=== PATIENT | female | born 1955 | race Caucasian/White ===

== ENCOUNTER 2018-07-01 13:14 | Emergency (ER) | payer MEDICAID ==
--- NOTE | 2018-07-01 14:21 | EDPHYS ---
Physician Documentation [facility] Name: Alethea Cabrera Age: 63 yrs Sex: Female : 1955 Arrival Date: 07/01/2018 Time: 13:15 Bed 17 Private MD: Miguel Nicole ED Physician Uri Dalton HPI: 07/01 14:04 This 63 yrs old Female presents to ER via EMS with complaints of Toothache. gs 14:04 The patient presents with broken tooth/teeth, pain. Onset: The symptoms/episode gs began/occurred 1 week(s) ago. Duration: The symptoms are continuous. Modifying factors: the symptoms are aggravated by chewing, cold fluids, food. Associated signs and symptoms: Pertinent negatives: chills, fever. Severity of symptoms: At their worst the symptoms were moderate, in the emergency department the symptoms are unchanged. The patient has experienced similar episodes in the past, chronically. The patient has not recently seen a physician. Historical: - Allergies: 13:34 No Known Allergies; ss - PMHx: 13:34 Arthritis; Asthma; COPD; Depression; ss 14:15 Hypertension; gs - PSHx: 13:34 ; Appendectomy; Carpal Tunnel Repair; Cholecystectomy; ss - Immunization history:: Adult Immunizations up to date. - Social history:: Smoking status: Patient/guardian denies using tobacco. - Ebola Screening: : Patient denies exposure to infectious person Patient denies travel to an Ebola-affected area in the 21 days before illness onset. ROS: 14:04 All other systems are negative. gs Exam: 14:04 Neck: Trachea midline, no thyromegaly or masses palpated, and no cervical gs lymphadenopathy. Supple, full range of motion without nuchal rigidity, or vertebral point tenderness. No Meningismus. Chest/axilla: Normal chest wall appearance and motion. Nontender with no deformity. No lesions are appreciated. Cardiovascular: Regular rate and rhythm with a normal S1 and S2. No gallops, murmurs, or rubs. Normal PMI, no JVD. No pulse deficits. Respiratory: Lungs have equal breath sounds bilaterally, clear to auscultation and percussion. No rales, rhonchi or wheezes noted. No increased work of breathing, no retractions or nasal flaring. Abdomen/GI: Soft, non-tender, with normal bowel sounds. No distension or tympany. No guarding or rebound. No evidence of tenderness throughout. Back: No spinal tenderness. No costovertebral tenderness. Full range of motion. Skin: Warm, dry with normal turgor. Normal color with no rashes, no lesions, and no evidence of cellulitis. MS/ Extremity: Pulses equal, no cyanosis. Neurovascular intact. Full, normal range of motion. Neuro: Awake and alert, GCS 15, oriented to person, place, time, and situation. Cranial nerves II-XII grossly intact. Motor strength 5/5 in all extremities. Sensory grossly intact. Cerebellar exam normal. Normal gait. 14:04 Constitutional: The patient appears alert, awake. 14:04 Head/face: Exam is negative for swelling. 14:04 Eyes: Exam is negative for acute changes. 14:04 ENT: Dental exam: dental caries, diffusely, fractured teeth are noted, specifically the lower right second molar (#31), gum swelling, not appreciated. Vital Signs: 13:34 BP 144 / 64; Pulse 104; Resp 20; Temp 97.9(O); Pulse Ox 97% on R/A; Weight 106.14 kg; ss Height 4 ft. 9 in. (144.78 cm); Pain 10/10; 13:34 Body Mass Index 50.64 (106.14 kg, 144.78 cm) ss MDM: 14:04 Patient medically screened. gs 14:15 Differential diagnosis: dental caries, gingivitis, dental abscess. Data reviewed: vital gs signs, nurses notes. Response to treatment: the patient's symptoms have mildly improved after treatment, and as a result, I will discharge patient. Administered Medications: No medications were administered Disposition: 07/01/18 14:21 Discharged to Home. Impression: Dental caries, Dental root caries. - Condition is Stable. - Discharge Instructions: Dental Caries, Adult, Dental Pain. - Prescriptions for Amoxicillin 875 mg Oral Tablet - take 1 tablet by ORAL route every 12 hours for 7 days; 14 tablet. Tylenol- Codeine #4 300-60 mg Oral Tablet - take 1 tablet by ORAL route every 6 hours As needed; 12 tablet. - Medication Reconciliation Form, Thank You Letter, Antibiotic Education, Prescription Opioid Use form. - Follow up: Private Physician; When: 2 - 3 days; Reason: Re-evaluation by your physician. Signatures: Erika Tavarez RN RN ss Uri Dalton MD MD gs Acob, MOISES Coronel RN ca1 Corrections: (The following items were deleted from the chart) 14:46 14:21 07/01/2018 14:21 Discharged to Home. Impression: Dental caries; Dental root ca1 caries. Condition is Stable. Forms are Medication Reconciliation Form, Thank You Letter, Antibiotic Education, Prescription Opioid Use. Follow up: Private Physician; When: 2 - 3 days; Reason: Re-evaluation by your physician. amy
--- NOTE | 2018-07-01 14:21 | ER ---
Nurse's Notes [facility] Name: Alethea Cabrera Age: 63 yrs Sex: Female : 1955 Arrival Date: 07/01/2018 Time: 13:15 Bed 17 Private MD: Miguel Nicole Diagnosis: Dental caries;Dental root caries Presentation: 07/01 13:33 Presenting complaint: Patient states: dental pain x 3 weeks. Pt also c/o sinus ss congestion and ear pain. Transition of care: patient was not received from another setting of care. Onset of symptoms was June 10, 2018. Risk Assessment: Do you want to hurt yourself or someone else? Patient reports no desire to harm self or others. Initial Sepsis Screen: Does the patient meet any 2 criteria? HR > 90 bpm. Does the patient have a suspected source of infection? No. Patient's initial sepsis screen is negative. Care prior to arrival: None. 13:33 Method Of Arrival: EMS: [facility] ss 13:33 Acuity: HEIKE 5 ss Historical: - Allergies: 13:34 No Known Allergies; ss - PMHx: 13:34 Arthritis; Asthma; COPD; Depression; ss 14:15 Hypertension; gs - PSHx: 13:34 ; Appendectomy; Carpal Tunnel Repair; Cholecystectomy; ss - Immunization history:: Adult Immunizations up to date. - Social history:: Smoking status: Patient/guardian denies using tobacco. - Ebola Screening: : Patient denies exposure to infectious person Patient denies travel to an Ebola-affected area in the 21 days before illness onset. Screenin:15 Abuse screen: Denies threats or abuse. Denies injuries from another. Nutritional ca1 screening: No deficits noted. Tuberculosis screening: No symptoms or risk factors identified. Fall Risk None identified. Assessment: 14:00 General: Appears in no apparent distress. Behavior is calm, cooperative. Pain: Pain ca1 currently is 5 out of 10 on a pain scale. Neuro: Level of Consciousness is awake, alert, obeys commands, Oriented to person, place, time, situation. Cardiovascular: Capillary refill < 3 seconds Patient's skin is warm and dry. Respiratory: Airway is patent Respiratory effort is even, unlabored, Respiratory pattern is regular, symmetrical. GI: No signs and/or symptoms were reported involving the gastrointestinal system. : No signs and/or symptoms were reported regarding the genitourinary system. EENT: Reports pain in lower right second molar (#31). Derm: Skin is intact, is healthy with good turgor. Musculoskeletal: No signs and/or symptoms reported regarding the musculoskeletal system. Vital Signs: 13:34 BP 144 / 64; Pulse 104; Resp 20; Temp 97.9(O); Pulse Ox 97% on R/A; Weight 106.14 kg; ss Height 4 ft. 9 in. (144.78 cm); Pain 10/10; 13:34 Body Mass Index 50.64 (106.14 kg, 144.78 cm) ED Course: 13:15 Patient arrived in ED. mr 13:15 Miguel Nicole MD is Private Physician. mr 13:34 Triage completed. 13:34 Arm band placed on right wrist. 13:54 Uri Dalton MD is Attending Physician. 14:00 Patient has correct armband on for positive identification. Bed in low position. Call ca1 light in reach. Side rails up X 1. 14:45 No provider procedures requiring assistance completed. Patient did not have IV access ca1 during this emergency room visit. Administered Medications: No medications were administered Outcome: 14:21 Discharge ordered by . 14:45 Discharged to home ambulatory. ca1 14:45 Condition: stable 14:45 Discharge instructions given to patient, Instructed on discharge instructions, follow up and referral plans. medication usage, Demonstrated understanding of instructions, follow-up care, medications, Prescriptions given X 2. 14:46 Patient left the ED. ca1 Signatures: [place] mr Erika Tavarez RN RN Uri Dalton MD MD Berna Villarreal RN RN ca1
== END 2018-07-01 14:46 | disposition home or self-care (01) ==
LOC: ER 13:14
DX: K02.7 Dental root caries (principal); I10 Essential (primary) hypertension
CPT/HCPCS: 99283

== ENCOUNTER 2019-04-16 06:10 | Emergency (ER) | payer MEDICAID ==
[2019-04-16] MEDS ORDERED: ONDANSETRON 4 MG/2 ML VIAL ONE (06:57)
[2019-04-16] MEDS ORDERED: NA CHLORIDE 0.9% 1,000 ML ONE (06:57)
[2019-04-16] MEDS ORDERED: MORPHINE 2 MG/ML SYR ONE (06:57)
[2019-04-16 07:08] LABS: Absolute Lymphocytes (CBC) 3.4 K/uL (0.7-4.9); Basophils % 0.5 % (0-1.3); Hematocrit 44.5 % (36.0-45.0); Lymphocytes % 24.3 % (15.3-44.8); MPV 8.7 fL (7.6-11.3); RBC Red Blood Cell Count 5.52 M/uL (3.86-4.86)
[2019-04-16 07:14] LABS: Protime INR 1.19
[2019-04-16 07:21] LABS: ALT/SGPT 33 U/L (12-78); AST/SGOT 34 U/L (15-37); Albumin 3.5 g/dL (3.4-5.0); Alkaline Phosphatase 156 U/L (45-117); BUN Blood Urea Nitrogen 19 mg/dL (7-18); Bicarbonate 25 mmol/L (21-32); Bilirubin Direct < 0.1 mg/dL (0-0.2); Bilirubin Total 0.3 mg/dL (0.2-1.0); Glucose Level 149 mg/dL (74-106); Lipase 54 U/L (73-393); NT PRO-BNP 49 pg/mL (<125); Potassium 3.8 mmol/L (3.5-5.1); Protein, Total 8.4 g/dL (6.4-8.2); Sodium Level 140 mmol/L (136-145); Troponin (Emerg Dept Use Only) < 0.02 ng/mL (0.0-0.045)
[2019-04-16] MEDS ORDERED: METRONIDAZOLE 500mg IVPB 500 MG/100 ML BAG IV ONE (08:27)
[2019-04-16] MEDS ORDERED: NA CHLORIDE 0.9% 500 ML ONE (08:27)
[2019-04-16] MEDS ORDERED: Levofloxacin500mg IV 500 MG/100 ML BAG IV ONE (08:27)
--- NOTE | 2019-04-16 09:42 | ER ---
Nurse's Notes [facility] Name: Alethea Cabrera Age: 63 yrs Sex: Female : 1955 Arrival Date: 04/16/2019 Time: 06:11 Bed 20 Private MD: Diagnosis: Abdominal and pelvic pain;Duodenitis;Acute sinusitis Presentation: 04/16 06:26 Presenting complaint: Patient states: cough, congestion, fever, sinus drainage, ak1 diarrhea, abd tenderness. pt sister yesterday. Transition of care: patient was not received from another setting of care. Onset of symptoms is unknown. Risk Assessment: Do you want to hurt yourself or someone else? Patient reports no desire to harm self or others. Initial Sepsis Screen: Does the patient meet any 2 criteria? RR > 20 per min. HR > 90 bpm. Yes Does the patient have a suspected source of infection? No. Patient's initial sepsis screen is negative. Care prior to arrival: None. 06:26 Method Of Arrival: Wheelchair ak1 06:26 Acuity: HEIKE 3 ak1 Triage Assessment: 06:28 General: Appears in no apparent distress. Behavior is cooperative. ak1 Historical: - Allergies: 06:28 No Known Allergies; ak1 - Home Meds: 06:35 promethazine 25 mg Oral tab 1 tab PRN [Active]; nitroglycerin 0.4 mg SL subl 1 tab PRN ak1 [Active]; levothyroxine 50 mcg tab 1 tab once daily [Active]; Lyrica 75mg Oral 1 cap 2 times per day [Active]; cyclobenzaprine 5 mg Oral tab 1 tab 3 times per day [Active]; lisinopril 10 mg Oral tab 1 tab once daily [Active]; tramadol 50 mg Oral tab 1 tab every 6 hours [Active]; montelukast 10 mg oral tab 1 tab once daily [Active]; simvastatin 20 mg Oral tab 1 tab once daily [Active]; meloxicam 15 mg oral tab 1 tab once daily [Active]; - PMHx: 06:28 Arthritis; Asthma; COPD; Hypertension; Depression; ak1 - PSHx: 06:28 ; Appendectomy; Carpal Tunnel Repair; Cholecystectomy; ak1 - Immunization history:: Adult Immunizations unknown. - Social history:: Smoking status: Patient/guardian denies using tobacco. - Ebola Screening: : No symptoms or risks identified at this time. - Family history:: not pertinent. Screenin:29 Abuse screen: Denies threats or abuse. Denies injuries from another. Nutritional ak1 screening: No deficits noted. Tuberculosis screening: No symptoms or risk factors identified. Fall Risk None identified. Assessment: 07:12 General: Appears in no apparent distress. Behavior is appropriate for age. Pain: lp1 Complains of pain in head, right ear, left ear Pain currently is 10 out of 10 on a pain scale. Neuro: Level of Consciousness is awake, alert, obeys commands, Oriented to person, place, time, situation. Cardiovascular: Patient's skin is warm and dry. Respiratory: Respiratory effort is even, unlabored, Parent/caregiver reports the patient having shortness of breath cough that is productive. GI: Abdomen is obese. : No signs and/or symptoms were reported regarding the genitourinary system. EENT: Reports nasal congestion. Derm: Skin is pink, warm \T\ dry. Musculoskeletal: No deficits noted. Vital Signs: 06:26 BP 137 / 106; Pulse 115; Resp 22; Temp 97.6(TE); Pulse Ox 97% on R/A; Weight 144.24 kg ak1 (R); Height 4 ft. 9 in. (144.78 cm) (R); Pain 10/10; 07:11 BP 159 / 84; Pulse 100; Resp 18; Pulse Ox 96% on R/A; lp1 06:26 Body Mass Index 68.81 (144.24 kg, 144.78 cm) ak ED Course: 06:11 Patient arrived in ED. ds1 06:19 Waylon Jimenez MD is Attending Physician. maurice 06:26 Arm band placed on Patient placed in an exam room, on a stretcher, on pulse oximetry, ak1 Patient notified of wait time. 06:28 Triage completed. ak1 06:29 Patient has correct armband on for positive identification. Bed in low position. Call ak1 light in reach. Side rails up X 1. Adult w/ patient. Pulse ox on. NIBP on. 06:54 Inserted saline lock: 22 gauge in left antecubital area, using aseptic technique. Blood oe collected. 07:03 Radiology exam delayed due to lab results not completed at this time. (BUN/Creatinine). eh 07:13 XRAY Chest (1 view) In Process Unspecified. EDMS 07:41 Kusum Santo, RN is Primary Nurse. ph 07:42 CT Abd/Pelvis - IV Contrast Only In Process Unspecified. EDMS 08:06 Umer Inman PA is PHCP. jr8 10:22 No provider procedures requiring assistance completed. IV discontinued, intact, ph bleeding controlled, No redness/swelling at site. Pressure dressing applied. Administered Medications: 07:00 Drug: NS 0.9% 500 ml Route: IV; Rate: bolus; Site: left antecubital; lp1 08:00 Follow up: Response: No adverse reaction; IV Status: Completed infusion ph 07:00 Drug: morphine 2 mg {Note: RASS 0.} Route: IVP; Site: left antecubital; lp1 07:30 Follow up: Response: No adverse reaction; Pain is decreased; RASS: Alert and Calm (0) ph 07:00 Drug: Zofran 4 mg Route: IVP; Site: left antecubital; lp1 10:21 Follow up: Response: No adverse reaction; Nausea is decreased ph 08:00 Drug: NS 0.9% 1000 ml Route: IV; Rate: 125 ml/hr; Site: left antecubital; ph 10:21 Follow up: Response: No adverse reaction; IV Status: Completed infusion ph 08:45 Drug: NS 0.9% 500 ml Route: IV; Rate: bolus; Site: left antecubital; ph 09:45 Follow up: Response: No adverse reaction; IV Status: Completed infusion ph 08:45 Drug: levofloxacin 500 mg Volume: 100 ml; Route: IVPB; Infused Over: 60 mins; Site: ph left antecubital; 09:45 Follow up: Response: No adverse reaction; IV Status: Completed infusion ph 09:45 Drug: Flagyl 500 mg Volume: 100 ml; Route: IVPB; Rate: 200 ml/hr; Infused Over: 30 ph mins; Site: left antecubital; 10:20 Follow up: Response: No adverse reaction; IV Status: Completed infusion ph Outcome: 09:41 Discharge ordered by MD. reyes 10:22 Discharged to home ambulatory, with family. ph 10:22 Condition: improved 10:22 Discharge instructions given to patient, Instructed on discharge instructions, follow up and referral plans. medication usage, Demonstrated understanding of instructions, follow-up care, medications, Prescriptions given X 3. 10:24 Patient left the ED. ph Signatures: Dispatcher [employer] EDWaylon Cotto MD MD cha Hagler, Alexus Briggs ds1 Tiffany Browning RN RN lp1 Umer Inman PA PA [id number] Adriane Moreno RN RN ak1 Kusum Santo RN RN Marquis Gomez
--- NOTE | 2019-04-16 09:43 | EDPHYS ---
Physician Documentation [facility] Name: Alethea Cabrera Age: 63 yrs Sex: Female : 1955 Arrival Date: 04/16/2019 Time: 06:11 Bed 20 Private MD: RAMIREZ Physician Waylon Jimenez HPI: 04/16 06:28 This 63 yrs old Female presents to ER via Wheelchair with complaints of maurice Dizziness, Ear Pain, Diarrhea. 06:28 The patient presents with dizziness, generalized weakness. Onset: The symptoms/episode maurice began/occurred 2 day(s) ago. 06:29 The patient presents with abdominal pain in the upper abdomen, in the lower abdomen, maurice abdominal distention in the upper abdomen, in the lower abdomen. Onset: The symptoms/episode began/occurred 3 day(s) ago. The patient presents to the emergency department with nausea, diarrhea, abdominal pain, of the right upper quadrant, left upper quadrant, right lower quadrant and left lower quadrant. Possible causes: unknown. Historical: - Allergies: 06:28 No Known Allergies; ak1 - Home Meds: 06:35 promethazine 25 mg Oral tab 1 tab PRN [Active]; nitroglycerin 0.4 mg SL subl 1 tab PRN ak1 [Active]; levothyroxine 50 mcg tab 1 tab once daily [Active]; Lyrica 75mg Oral 1 cap 2 times per day [Active]; cyclobenzaprine 5 mg Oral tab 1 tab 3 times per day [Active]; lisinopril 10 mg Oral tab 1 tab once daily [Active]; tramadol 50 mg Oral tab 1 tab every 6 hours [Active]; montelukast 10 mg oral tab 1 tab once daily [Active]; simvastatin 20 mg Oral tab 1 tab once daily [Active]; meloxicam 15 mg oral tab 1 tab once daily [Active]; - PMHx: 06:28 Arthritis; Asthma; COPD; Hypertension; Depression; ak1 - PSHx: 06:28 ; Appendectomy; Carpal Tunnel Repair; Cholecystectomy; ak1 - Immunization history:: Adult Immunizations unknown. - Social history:: Smoking status: Patient/guardian denies using tobacco. - Ebola Screening: : No symptoms or risks identified at this time. - Family history:: not pertinent. ROS: 06:29 Constitutional: Negative for fever, chills, and weight loss, Eyes: Negative for injury, maurice pain, redness, and discharge, ENT: Negative for injury, pain, and discharge, Neck: Negative for injury, pain, and swelling, Cardiovascular: Negative for chest pain, palpitations, and edema, Respiratory: Negative for shortness of breath, cough, wheezing, and pleuritic chest pain, Back: Negative for injury and pain, : Negative for injury, bleeding, discharge, and swelling, MS/Extremity: Negative for injury and deformity, Skin: Negative for injury, rash, and discoloration, Neuro: Negative for headache, weakness, numbness, tingling, and seizure, Psych: Negative for depression, anxiety, suicide ideation, homicidal ideation, and hallucinations, Allergy/Immunology: Negative for hives, rash, and allergies, Endocrine: Negative for neck swelling, polydipsia, polyuria, polyphagia, and marked weight changes, Hematologic/Lymphatic: Negative for swollen nodes, abnormal bleeding, and unusual bruising. 06:29 Abdomen/GI: Positive for abdominal pain, diarrhea. Exam: 06:29 Constitutional: This is a well developed, well nourished patient who is awake, alert, maurice and in no acute distress. Head/Face: Normocephalic, atraumatic. Eyes: Pupils equal round and reactive to light, extra-ocular motions intact. Lids and lashes normal. Conjunctiva and sclera are non-icteric and not injected. Cornea within normal limits. Periorbital areas with no swelling, redness, or edema. ENT: Nares patent. No nasal discharge, no septal abnormalities noted. Tympanic membranes are normal and external auditory canals are clear. Oropharynx with no redness, swelling, or masses, exudates, or evidence of obstruction, uvula midline. Mucous membranes moist. Neck: Trachea midline, no thyromegaly or masses palpated, and no cervical lymphadenopathy. Supple, full range of motion without nuchal rigidity, or vertebral point tenderness. No Meningismus. Chest/axilla: Normal chest wall appearance and motion. Nontender with no deformity. No lesions are appreciated. Back: No spinal tenderness. No costovertebral tenderness. Full range of motion. Skin: Warm, dry with normal turgor. Normal color with no rashes, no lesions, and no evidence of cellulitis. MS/ Extremity: Pulses equal, no cyanosis. Neurovascular intact. Full, normal range of motion. Neuro: Awake and alert, GCS 15, oriented to person, place, time, and situation. Cranial nerves II-XII grossly intact. Motor strength 5/5 in all extremities. Sensory grossly intact. Cerebellar exam normal. Normal gait. Psych: Awake, alert, with orientation to person, place and time. Behavior, mood, and affect are within normal limits. 06:29 Cardiovascular: Rate: tachycardic, Rhythm: regular, Pulses: Pulses are 4+ in bilateral radial, brachial, femoral, popliteal, posterior tibial and and dorsalis pedis arteries.. Heart sounds: normal, Edema: is not appreciated, JVD: is not appreciated. 06:29 Respiratory: Exam negative for acute changes. Vital Signs: 06:26 BP 137 / 106; Pulse 115; Resp 22; Temp 97.6(TE); Pulse Ox 97% on R/A; Weight 144.24 kg ak1 (R); Height 4 ft. 9 in. (144.78 cm) (R); Pain 10/10; 07:11 BP 159 / 84; Pulse 100; Resp 18; Pulse Ox 96% on R/A; lp1 06:26 Body Mass Index 68.81 (144.24 kg, 144.78 cm) ak1 MDM: 06:21 Patient medically screened. [facility] 06:31 Data reviewed: vital signs, nurses notes, lab test result(s), EKG, radiologic studies, [facility] CT scan, plain films. 08:27 Data interpreted: Pulse oximetry: on room air is 96 %. Interpretation: normal. jr8 Counseling: I had a detailed discussion with the patient and/or guardian regarding: the historical points, exam findings, and any diagnostic results supporting the discharge/admit diagnosis, lab results, radiology results. 09:39 ED course: Mild duodenitis noted on CT. No other acute findings. Labs unremarkable. jr8 Patient doing better. Able to tolerate both solids and liquids. Will continue Abx at home. To f/u with PCP in next few days. If worse knows to come back . 04/16 06:27 Order name: Basic Metabolic Panel; Complete Time: 07: [facility] 04/16 06:27 Order name: CBC with Diff; Complete Time: : [facility] 04/16 06:27 Order name: LFT's; Complete Time: :26 [facility] 04/16 06:27 Order name: Magnesium; Complete Time: 07:26 [facility] 04/16 06:27 Order name: NT PRO-BNP; Complete Time: 07:26 [facility] 04/16 06:27 Order name: PT-INR; Complete Time: 07:26 [facility] 04/16 06:27 Order name: Troponin (emerg Dept Use Only); Complete Time: 07:26 [facility] 04/16 06:27 Order name: XRAY Chest (1 view) 04/16 06:27 Order name: Lipase; Complete Time: 07:26 [facility] 04/16 06:27 Order name: Blood Culture Adult (2) 04/16 06:27 Order name: CT Abd/Pelvis - IV Contrast Only 04/16 06:27 Order name: EKG; Complete Time: 06:29 [facility] 04/16 06:27 Order name: Cardiac monitoring; Complete Time: 06:55 [facility] 04/16 06:27 Order name: EKG - Nurse/Tech; Complete Time: 06:55 [facility] 04/16 06:27 Order name: IV Saline Lock; Complete Time: 06:55 [facility] 04/16 06:27 Order name: Labs collected and sent; Complete Time: 06:56 [facility] 04/16 06:27 Order name: O2 Per Protocol; Complete Time: 06:56 [facility] 04/16 06:27 Order name: O2 Sat Monitoring; Complete Time: 06:56 [facility] 04/16 07:33 Order name: PO challenge: ice; Complete Time: 07:52 [facility] Administered Medications: 07:00 Drug: NS 0.9% 500 ml Route: IV; Rate: bolus; Site: left antecubital; lp1 08:00 Follow up: Response: No adverse reaction; IV Status: Completed infusion ph 07:00 Drug: morphine 2 mg {Note: RASS 0.} Route: IVP; Site: left antecubital; lp1 07:30 Follow up: Response: No adverse reaction; Pain is decreased; RASS: Alert and Calm (0) ph 07:00 Drug: Zofran 4 mg Route: IVP; Site: left antecubital; lp1 10:21 Follow up: Response: No adverse reaction; Nausea is decreased ph 08:00 Drug: NS 0.9% 1000 ml Route: IV; Rate: 125 ml/hr; Site: left antecubital; ph 10:21 Follow up: Response: No adverse reaction; IV Status: Completed infusion ph 08:45 Drug: NS 0.9% 500 ml Route: IV; Rate: bolus; Site: left antecubital; ph 09:45 Follow up: Response: No adverse reaction; IV Status: Completed infusion ph 08:45 Drug: levofloxacin 500 mg Volume: 100 ml; Route: IVPB; Infused Over: 60 mins; Site: ph left antecubital; 09:45 Follow up: Response: No adverse reaction; IV Status: Completed infusion ph 09:45 Drug: Flagyl 500 mg Volume: 100 ml; Route: IVPB; Rate: 200 ml/hr; Infused Over: 30 ph mins; Site: left antecubital; 10:20 Follow up: Response: No adverse reaction; IV Status: Completed infusion ph Disposition: 11:28 Co-signature as Attending Physician, Waylon Jimenez MD I agree with the assessment and maurice plan of care. Disposition: 04/16/19 09:41 Discharged to Home. Impression: Abdominal and pelvic pain, Duodenitis, Acute sinusitis. - Condition is Stable. - Discharge Instructions: Abdominal Pain, Adult, Sinusitis, Adult. - Prescriptions for Flagyl 500 mg Oral Tablet - take 1 tablet by ORAL route every 6 hours for 10 days; 40 tablet. Levaquin 500 mg Oral Tablet - take 1 tablet by ORAL route once daily for 7 days; 7 tablet. Zofran 4 mg Oral Tablet - take 1 tablet by ORAL route every 12 hours As needed; 20 tablet. - Medication Reconciliation Form, Thank You Letter, Antibiotic Education, Prescription Opioid Use form. - Follow up: Private Physician; When: 2 - 3 days; Reason: Recheck today's complaints, Continuance of care, Re-evaluation by your physician. - Problem is new. - Symptoms have improved. Signatures: Dispatcher [employer] Waylon Howard MD MD cha Pena, Laura, RN RN lp1 Umer Inman PA PA jr8 Krenek, Amber, RN RN ak1 Kusum Santo RN RN ph Corrections: (The following items were deleted from the chart) 10:24 09:41 04/16/2019 09:41 Discharged to Home. Impression: Abdominal and pelvic pain; ph Duodenitis; Acute sinusitis. Condition is Stable. Forms are Medication Reconciliation Form, Thank You Letter, Antibiotic Education, Prescription Opioid Use. Follow up: Private Physician; When: 2 - 3 days; Reason: Recheck today's complaints, Continuance of care, Re-evaluation by your physician. Problem is new. Symptoms have improved. jr8
[2019-04-16 10:34] VITALS: BP 159/84; TEMP 97.6; O2SAT 96
--- NOTE | 2019-04-16 11:11 | RAD REPORT ---
EXAM DESCRIPTION: RAD - Chest Single View - 04/16/2019 7:11 am CLINICAL HISTORY: Cough, congestion, fever COMPARISON: March 2018 TECHNIQUE: AP portable chest image was obtained 0706 hours . FINDINGS: Lung volumes are low. Lung markings are accentuated by shallow inspiration. Vague increase d density is seen in the upper right lung field superimposed on the posterior right sixth rib. Mass o r infiltrate are low in likelihood but not excluded. The shallow inspiration accentuates all lung mar kings. Trachea is midline. No other mass or consolidation in the lung decker. Heart and vasculature a re normal. No measurable pleural effusion and no pneumothorax. No acute bony abnormality seen. No acu te aortic findings suspected. IMPRESSION: Limited shallow inspiration film. No clearly defined mass or infiltrate. Vague opacification in the right upper lung field superimposed on the posterior right sixth rib can b e re-evaluated with follow-up two-view chest imaging.
--- NOTE | 2019-04-16 11:11 | RAD REPORT ---
EXAM DESCRIPTION: CT - Abdomen Pelvis W Contrast - 04/16/2019 7:42 am CLINICAL HISTORY: ABD PAIN COMPARISON: None. TECHNIQUE: Biphasic, helical CT imaging of the abdomen and pelvis was performed following 100 ml non -ionic IV contrast. No oral contrast. All CT scans are performed using dose optimization technique as appropriate and may include automated exposure control or mA/KV adjustment according to patient size. FINDINGS: No suspicious findings in the lung bases. Liver shows diffuse fatty infiltration pattern. No focal liver lesions seen. No acute spleen or pancr eatic finding. Cholecystectomy clips are present. Biliary tree within normal limits. Symmetric renal function is seen with no hydronephrosis or suspicious renal mass. No pyelonephritis o r acute parenchymal process. Partially filled urinary bladder shows no suspicious finding. Uterus is absent. Ovaries are absent or possibly atrophic. No adnexal mass. Surgical clips are seen along the l eft lower pelvis. No adrenal abnormalities. Distal esophagus is minimally prominent probably not a significant finding. No gastric wall thickenin g or mass. A few prominent but nondilated small bowel loops are present in the upper abdomen. This in cludes the duodenum. Diverticulosis is present mild in degree with no diverticulitis. No free air, free fluid or inflammatory stranding. No hernia, mass or bulky lymphadenopathy. No suspicious bony findings. IMPRESSION: Mildly prominent upper abdominal small bowel loops including the duodenum. Findings are relatively mild but could indicate a nonspecific duodenitis/enteritis. No obstruction, free air or surgically emergent finding. Diffuse fatty infiltration of the liver. Cholecystectomy changes are present. Biliary tree within normal limits for a post cholecystectomy pat ient.
--- NOTE | 2019-04-17 08:41 | EKG ---
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
== END 2019-04-16 10:24 | disposition home or self-care (01) ==
LOC: ER 06:10
DX: K29.80 Duodenitis without bleeding (principal); R10.9 Unspecified abdominal pain; R10.2 Pelvic and perineal pain; J01.90 Acute sinusitis, unspecified; J45.909 Unspecified asthma, uncomplicated; J44.9 Chronic obstructive pulmonary disease, unspecified; I10 Essential (primary) hypertension; F32.9 Major depressive disorder, single episode, unspecified
CPT/HCPCS: 96365; 96367; 96361; 93005; 87040 ×2; 85025; 80048; 36415; 83735; 85610; 80076; 84484; 83690; 83880; 74177; 71045; 96375; 99284; Q9967; J2270; J7030; J2405